=== PATIENT | female | born 1955 | race Caucasian/White ===

== ENCOUNTER → 2023-11-09 17:17 | Outpatient (REF) | payer MEDICARE, SELFPAY | LOC: WDC 17:17 | PROVIDERS: ATTENDING PHYSICIAN Family Medicine | DX: Z12.31 Encounter for screening mammogram for malignant neoplasm of breast (principal) | CPT/HCPCS: 77063; 77067 ==

== ENCOUNTER 2024-01-18 08:27 | Emergency (ER) | payer MEDICARE, SELFPAY ==
[2024-01-18 08:44] VITALS: BP 158/106
[2024-01-18 09:04] LABS: % Basophils 0.7 % (0-2); % Eosinophils 1.9 % (0-6); % Immature Granulocytes 0.2 % (0-0.5); % Lymphocytes 37.2 % (20.5-51.1); % Monocytes 11.8 % (1.7-9.3); % Neutrophils 48.2 % (42.2-75.2); Absolute Eosinophils 0.1 10^3/uL (0-0.7); Absolute Lymphocytes 2.2 10^3/uL (1.2-3.4); Absolute Monocytes 0.7 10^3/uL (0.1-0.6); Absolute Neutrophils 2.8 10^3/uL (1.4-6.5); Hematocrit 38.9 % (37.0-47.0); Hemoglobin 13.3 g/dL (12.0-16.0); Mean Corp Hgb Conc. 34.2 g/dL (33.0-37.0); Mean Corpuscular Hgb 29.1 pg (27.0-31.0); Mean Corpuscular Volume 85.1 fL (81.0-99.0); Mean Platelet Volume 10.8 fL (7.4-10.4); Nucleated Red Blood Cells % 0 %; Platelet Count 163 10^3/uL (130-400); Red Blood Cell Count 4.57 10^6/uL (4.20-5.40); Red Cell Dist. Width 13.6 % (11.5-14.5); White Blood Cell Count 5.8 10^3/uL (4.8-10.8)
[2024-01-18 09:21] LABS: ALT (SGPT) 26 U/L (0-35); AST (SGOT) 29 U/L (14-36); Albumin 4.8 g/dl (3.5-5.0); Alkaline Phosphatase 78 U/L (38-126); Blood Urea Nitrogen 15 mg/dl (7-17); Carbon Dioxide 27 mmol/L (22-30); Chloride 101 mmol/L (98-107); Glucose 117 mg/dl (70-99); Lipase 270 U/L (23-300); Potassium 3.6 mmol/L (3.5-5.1); Sodium 142 mmol/L (135-145); Total Bilirubin 0.8 mg/dl (0.2-1.3); Total Protein 7.6 g/dl (6.3-8.2); eGFR > 60.00
[2024-01-18 10:42] VITALS: BMI 25.6
[2024-01-18] MEDS: PROTONIX IV 40 MG IV (11:39)
[2024-01-18 12:13] VITALS: BP 122/73
--- NOTE | 2024-01-18 14:06 | ED.GENMED ---
History of Present Illness
General
Chief Complaint: Abdominal Symptoms
Source: patient
Exam Limitations: none
Time Seen by Provider: 01/18/24 10:35
Nursing documentation reviewed up to this point in time: agreed with
History of Present Illness
History of Present Illness:
68 Y/O F with h/o endometrial cancer last year s/p hysterectomy
here with abdominal fullness, post prandial discomfort/bloating for th epa 4 days
she says she tried a bland diet but really doesn't have appetite
she has been belchin too if she lays down
no specific abdomianl pain
no fevr, chills, back pain, chest pain shortness of breath, urnaryproblems, black stool, contstipation, diarrhea
Past History
Past History
ED Past Medical History: Cancer (endometrial)
ED Past Surgical History: Appendectomy and Gynecological
Review of Systems
Review of Systems
Allergies reviewed?: Yes
All Other Systems: Not applicable
Phy Exam
Physical Exam
Physical Exam:
GENERAL: Alert , in no apparent distress
EYE: pupils equal and reactive
NECK: Supple
ENT: o/p clr, mmm.
CARDIAC: Regular rate and rhythm .
LUNGS: Clear breath sounds bilaterally, no acute respiratory distress, no wheezes/rales/rhonchi
ABDOMEN: Soft, without focal tenderness, no r/g, no cvat, normal bowel sounds
NEUROLOGICAL: Alert and oriented, no focal neuro deficits
SKIN: Warm and dry, skin intact.
MUSCULOSKELETAL: No edema, well perfused. neg emely's sign
PSYCH: Normal and appropriate interaction.
Course
Orders/Labs/Results
Orders:
Orders
01/18/24 08:51
Complete Blood Count/With Diff Urgent
Comprehensive Metabolic Panel Urgent
Lipase Urgent
01/18/24 11:36
Electrocardiogram (*1) Urgent
Reason for Study: Abdominal Pain
CT Abd/Pel (IV only)-DH only Urgent
Comment: cannot tolerate oral contrast
Reason For Exam: upper abd fullness, belching, cannot eat
EKG- Treatment ONCE
Pantoprazole [Protonix IV] 40 mg IV NOW STA
01/18/24 15:03
Troponin I Urgent
Abnormal Lab Results
01/18/24
08:51
MPV 10.8 H fL
(7.4-10.4)
Absolute Monos (auto) 0.7 H 10^3/uL
(0.1-0.6)
Monocytes % 11.8 H %
(1.7-9.3)
Glucose 117 H mg/dl
(70-99)
01/18/24 08:51
01/18/24 08:51
Vital Signs
Initial and Last Documented VS:
Initial Vital Signs
Temp Pulse Resp BP Pulse Ox
97.7 F 62 18 158/106 98
01/18/24 08:44 01/18/24 08:44 01/18/24 08:44 01/18/24 08:44 01/18/24 08:44
Last Documented Vital Signs
Temp Pulse Resp BP Pulse Ox
97.7 F 76 18 127/89 100
01/18/24 08:44 01/18/24 16:04 01/18/24 16:04 01/18/24 16:04 01/18/24 16:04
MDM/Problems Addressed
Differential Diagnosis Includes:
gsatrtis, gastroparesis, pancreatitis, PUD, gerd, bowel obstruction
MDM/Problems Addressed:
68 y/o F wellappearing f
h/o endometrial ancer in thep at
here with epigastric fullness, bloating, belching x 4 days
no fvomiting
no fever
no specific pain
lack of appetite
normal exam
well appearing
protonix ordered for possible GERD symptoms/gastritis
labs reassuring
ekg sublte st flattening laterally
ct is reassuring as well
no findings to epxlain pain
pt will f/u with GI
bland diet
protonix daily x 1-2 weeks
return precautions
will likely need endosocopy
*Critical Care Note
Total Time (30-74mins, 75-104mins- exclusive of procedures): Not Applicable
ED Attending Note
-
Portions of this chart may have been created with voice recognition software.� Occasional wrong word or��sound alike� substitutions may have occurred due to the inherent limitations of voice recognition software.
Discharge Plan
Departure
Patient Disposition: Home (Routine Discharge)
Date of Disposition: 01/18/24
Time of Disposition: 15:44
Patient with high blood pressure during this ER visit?: No
Condition: Fair
Discharge Problem:
Abdominal fullness
Instructions: [place] Diet, Abdominal Pain
Prescriptions:
New
pantoprazole [Protonix] 20 mg tablet,delayed release (DR/EC)
20 mg PO DAILY Qty: 14 0RF
No Action
metoprolol tartrate 100 mg tablet
100 mg PO BID
levothyroxine 88 mcg tablet
88 mcg PO DAILY AT 0700
pravastatin 10 mg tablet
10 mg PO QPM
hydrochlorothiazide 25 mg tablet
25 mg PO DAILY
magnesium 500 mg Tablet
500 mg PO DAILY
multivitamin Capsule
1 cap PO DAILY
vitamin B complex [B Complex] Capsule
1 cap PO DAILY
[place] 3 Capsule
720 mg PO DAILY
selenium 200 mcg Capsule
200 mcg PO DAILY
Calcium 600 + D(3)
1 tab PO DAILY
Paxlovid 300 mg (150 mg x 2)-100 mg tablets,dose pack
See Rx Instructions .ROUTE .COMPLEX Qty: 30 0RF
Rx Instructions:
take TWO 150 mg tablets of nirmatrelvir with ONE 100 mg tablet of ritonavir twice daily for 5 days
ascorbic acid (vitamin C) [Vitamin C] 1,000 mg Tablet
1,000 mg PO BID Qty: 56 0RF
Rx Instructions:
Take 1,000 mg twice a day for 14 days
famotidine [Pepcid] 20 mg Tablet
20 mg PO BID Qty: 28 0RF
Rx Instructions:
Take 20 mg twice a day for 14 days
aspirin [Aspirin Childrens] 81 mg Tablet,Chewable
81 mg PO DAILY Qty: 14 0RF
Rx Instructions:
Take 81 mg daily for 14 days
zinc sulfate 50 mg zinc (220 mg) Capsule
50 mg PO DAILY Qty: 14 0RF
Rx Instructions:
Take 220 mg daily for 14 days
cholecalciferol (vitamin D3) [Vitamin D3] 25 mcg (1,000 unit) Tablet
50 mcg PO DAILY Qty: 28 0RF
Rx Instructions:
Take 2,000 units daily for 14 days
melatonin 5 mg Tablet
5 mg PO HS Qty: 14 0RF
Rx Instructions:
Take 5 mg daily at bedtime for 14 days
ibuprofen 600 mg tablet
600 mg PO Q8H PRN (Reason: fever) Qty: 30 0RF
promethazine 25 mg tablet
25 mg PO Q6H PRN (Reason: headache) Qty: 10 0RF
Referrals:
Speedy Bartlett DO [Family Provider] -
Magdalena Jc DO [Active] - Follow up in 5-7 days
Activity Restrictions/Additional Instructions:
WE ARE NOT SURE THE CAUSE OF YOUR BELCHING AND FULLNESS
YOU MAY NEED A GASTRIC EMPTYING STUDY
YOU ALSO MAY NEED AN ENDOSCOPY
FOR THE MENATIME, USE BLAND DIET FOR NOW
TAKE PROTONIX 20 MG IN THE MORNING BEFORE EATING AND WAIT 45 MINUTES BEFORE EATING BREAKFAST
RETURN FOR: SEVERE PAIN, BLACK STOOL, FEVER, VOMITING, OR ANY CONCERNS.
Interventions
Interventions:
*Risk Screen - Suicide Last Done: 01/18/24 08:46
*General Assessment Last Done: 01/18/24 10:42
*Neglect/Abuse Screening Last Done: 01/18/24 10:42
*ED COVID-19 Vaccine History Last Done: 01/18/24 10:42
*Nursing Disposition Last Done: 01/18/24 16:04
HW-Neokdr-Mlspdepomy Assessment Last Done: 01/18/24 10:42
Discharge Date and Time
Discharge Date/Time: 01/18/24 16:05
Print Language: CUBAN
[2024-01-18 15:35] LABS: Troponin I < 0.012 ng/ml
[2024-01-18 16:02] VITALS: BP 127/89
[2024-01-18 16:04] VITALS: BP 127/89
== END 2024-01-18 16:05 | disposition home or self-care (01) ==
LOC: EMR 08:27
PROVIDERS: Physician Assistant; EMERGENCY PHYSICIAN Emergency Medicine; FAMILY PHYSICIAN Family Medicine
DX: R10.9 Unspecified abdominal pain (principal); R14.0 Abdominal distension (gaseous); E78.5 Hyperlipidemia, unspecified; I10 Essential (primary) hypertension; E03.9 Hypothyroidism, unspecified; Z85.42 Personal history of malignant neoplasm of other parts of uterus; Z87.891 Personal history of nicotine dependence
CPT/HCPCS: 99285; 96374; 74177; 80053; 83690; 84484; 85025; 93005; Q9967

== ENCOUNTER → 2024-11-16 15:33 | Outpatient (REF) | payer MEDICARE, SELFPAY | LOC: WDC 15:33 | PROVIDERS: ATTENDING PHYSICIAN Family Medicine | DX: Z12.31 Encounter for screening mammogram for malignant neoplasm of breast (principal) | CPT/HCPCS: 77063; 77067 ==

== ENCOUNTER 2025-01-12 18:02 | Observation (INO) | payer MEDICARE, SELFPAY ==
[2025-01-12] VITALS (10 sets, daily range): BP systolic 125–169; BP diastolic 61–93; PULSE 43–54; BMI 27.0; BMI 26.5
[2025-01-12 12:47] LABS: Hematocrit 36.4 % (37.0-47.0); Hemoglobin 12.3 g/dL (12.0-16.0); Mean Corp Hgb Conc. 33.8 g/dL (33.0-37.0); Mean Corpuscular Volume 84.5 fL (81.0-99.0); Nucleated Red Blood Cells % 0 %; Platelet Count 153 10^3/uL (130-400); Red Cell Dist. Width 13.3 % (11.5-14.5)
[2025-01-12 13:02] LABS: ALT (SGPT) 34 U/L (0-35); AST (SGOT) 28 U/L (14-36); Albumin 4.4 g/dl (3.5-5.0); Alkaline Phosphatase 70 U/L (38-126); Blood Urea Nitrogen 13 mg/dl (7-17); Calcium 9.1 mg/dl (8.4-10.2); Carbon Dioxide 26 mmol/L (22-30); Chloride 105 mmol/L (98-107); Glucose 113 mg/dl (70-99); Potassium 3.5 mmol/L (3.5-5.1); Sodium 139 mmol/L (135-145); Total Protein 7.4 g/dl (6.3-8.2); eGFR > 60.00
[2025-01-12 13:06] LABS: Troponin I < 0.012 ng/ml
--- NOTE | 2025-01-12 14:09 | ED.GENMED ---
History of Present Illness
<Anne Wyatt PA-C - Last Filed: 01/12/25 17:56>
General
Chief Complaint: Dizziness
Source: patient
Exam Limitations: none
Time Seen by Provider: 01/12/25 13:54
History of Present Illness
History of Present Illness:
69yoF with a history of hypertension, hyperlipidemia, and hypothyroidism presenting with her daughter for evaluation of dizziness. She went to bed feeling normal last night. She woke up around 9 AM this morning. She was feeling normal while
laying in the bed but stood up and became dizzy. She describes the dizziness as wooziness and states it feels like her 'head is detached from her body' and 'there are clouds in my head.' She denies any vertiginous symptoms or lightheadedness. She
is unable to ambulate in a straight line due to the dizziness. Symptoms only occur with standing or sitting up. She has a mild tightness sensation in the back of her head but denies any overt headache. No chest pain, shortness of breath, nausea,
vomiting, visual changes, paresthesias, weakness. HR in the 40-50 range during initial exam. She does report being bradycardic at baseline but is unsure if this is worse than usual. She takes metoprolol 100mg BID.
Past History
<Anne Wyatt PA-C - Last Filed: 01/12/25 17:56>
Past History
ED Past Medical History: Cancer (endometrial)
ED Past Surgical History: Appendectomy and Gynecological
Phy Exam
<Anne Wyatt PA-C - Last Filed: 01/12/25 17:56>
General Physical Exam
General Presentation: well appearing and no apparent distress
General Skin: warm and dry
General Habitus: normal
General Mental: alert
ENT Exam
ENT Exam: normocephalic
Eye Exam
Eye Exam: PERRL, EOMI, conjunctiva normal and visual casey normal
Cardiovascular Exam
Cardiovascular Exam: regular rate/rhythm and no murmur
Pulmonary Exam
Pulmonary Exam: lungs clear, no respiratory distress, no rales, no crackles, no rhonchi and no wheezing
Neurological Exam
Neurological Exam: alert, no motor deficits, speech normal and other (+Romberg test. Patient unable to ambulate due to unsteadiness. CN 2-12 intact. Negative drift x4. Normal finger to nose and heel to de la cruz bilaterally. )
NIH Stroke Score
Level of Consciousness: 0 - Alert
LOC questions: 0-Answers both correctly
LOC Commands: 0-Performs both correctly
Best Gaze: 0-Normal
Visual Casey: 0=Normal, no visual loss
Facial palsy: 0=Normal, symmetrical
Motor - Right Arm: 0=No drift 10 seconds
Motor - Left Arm: 0=No drift 10 seconds
Motor - Right Le-No drift 5 seconds
Motor - Left Le-No drift 5 seconds
Limb Ataxia: 0-Absent
Sensation: 0-Normal
Best Language: 0-No aphasia
Dysarthria: 0-Normal
Extinction and Inattention: 0-No abnormality
Total Score:: 0
[place] Coma Scale
Eye Opening: Spontaneous
Verbal Response: Oriented
Motor Response: Obeys Commands
GCS Total Score: 15
Skin Exam
Skin Exam: normal color and warm/dry
Psychiatric Exam
Psychiatric Exam: normal mood/affect
Course
<Anne Wyatt PA-C - Last Filed: 01/12/25 17:56>
Orders/Labs/Results
Orders:
Orders
01/12/25 12:18
Electrocardiogram (*1) Urgent
Reason for Study: Other
Other Reason for Exam: Possible Stroke
CT Head W/o Iv Contrast Urgent
Comment:
Reason For Exam: lack of balance
EKG- Treatment ONCE
01/12/25 12:30
Complete Blood Count/With Diff Urgent
Comprehensive Metabolic Panel Urgent
TSH Urgent
Comment: ADD ON
Troponin I Urgent
01/12/25 14:21
Cardiac Monitoring- Treatment ONCE
Orthostatic VS- Treatment ONCE
0.9% Sodium Chloride 1000 ml [Nss] 1,000 ml IV BOLUS
01/12/25 14:22
Add On- LAB Urgent
Tests Added?: TSH
01/12/25 17:29
Admit/Transfer Patient As Directed
Co-Sign Provider:
Level of Care: Observation services
Assign to:: Telemetry
Physician / Group: gildardo
Diagnosis: dizzy
Reason for Telemetry: Arrhythmia
Date to Stop Telemetry: 01/15/25
Time to Stop Telemetry: 11:00
PRN Pain Medication Management As Directed
May give lesser potent ordered pain med per pt: Yes
preference::
Protocol:: Medication orders for pain may be administered in a
manner that supports deferring to patient preference
when the pt is:
- Requesting an ordered lesser potent pain medication.
Least to most potent pain medications are defined
as: acetaminophen < NSAID < tramadol < opioids
(morphine, oxycodone, hydromorphone).
- Requesting a lesser dose of the same medication IF
ORDERED.
- Requesting a less intrusive route of administration
if both routes are prescribed by the provider (PO <
IV).
01/12/25 17:31
Code Status As Directed
Resuscitation Status: Full Code
01/15/25 11:00
DC Protocol for Telemetry ONCE
Abnormal Lab Results
01/12/25
12:30
WBC 4.5 L 10^3/uL
(4.8-10.8)
Hct 36.4 L %
(37.0-47.0)
MPV 10.9 H fL
(7.4-10.4)
Monocytes % 11.3 H %
(1.7-9.3)
Glucose 113 H mg/dl
(70-99)
01/12/25 12:30
01/12/25 12:30
Vital Signs
Initial and Last Documented VS:
Initial Vital Signs
Temp Pulse Resp BP Pulse Ox
97.6 F 54 18 169/91 99
01/12/25 12:18 01/12/25 12:18 01/12/25 12:18 01/12/25 12:18 01/12/25 12:18
Last Documented Vital Signs
Temp Pulse Resp BP Pulse Ox
97.6 F 47 21 132/93 95
01/12/25 12:18 01/12/25 17:02 01/12/25 17:00 01/12/25 17:00 01/12/25 17:00
<Nitin Arrington, DO - Last Filed: 01/12/25 17:08>
Orders/Labs/Results
Orders:
Orders
01/12/25 12:18
Electrocardiogram (*1) Urgent
Reason for Study: Other
Other Reason for Exam: Possible Stroke
CT Head W/o Iv Contrast Urgent
Comment:
Reason For Exam: lack of balance
EKG- Treatment ONCE
01/12/25 12:30
Complete Blood Count/With Diff Urgent
Comprehensive Metabolic Panel Urgent
TSH Urgent
Comment: ADD ON
Troponin I Urgent
01/12/25 14:21
Cardiac Monitoring- Treatment ONCE
Orthostatic VS- Treatment ONCE
0.9% Sodium Chloride 1000 ml [Nss] 1,000 ml IV BOLUS
01/12/25 14:22
Add On- LAB Urgent
Tests Added?: TSH
01/12/25 17:29
Admit/Transfer Patient As Directed
Co-Sign Provider:
Level of Care: Observation services
Assign to:: Telemetry
Physician / Group: gildardo
Diagnosis: dizzy
Reason for Telemetry: Arrhythmia
Date to Stop Telemetry: 01/15/25
Time to Stop Telemetry: 11:00
PRN Pain Medication Management As Directed
May give lesser potent ordered pain med per pt: Yes
preference::
Protocol:: Medication orders for pain may be administered in a
manner that supports deferring to patient preference
when the pt is:
- Requesting an ordered lesser potent pain medication.
Least to most potent pain medications are defined
as: acetaminophen < NSAID < tramadol < opioids
(morphine, oxycodone, hydromorphone).
- Requesting a lesser dose of the same medication IF
ORDERED.
- Requesting a less intrusive route of administration
if both routes are prescribed by the provider (PO <
IV).
01/12/25 17:31
Code Status As Directed
Resuscitation Status: Full Code
01/15/25 11:00
DC Protocol for Telemetry ONCE
Abnormal Lab Results
01/12/25
12:30
WBC 4.5 L 10^3/uL
(4.8-10.8)
Hct 36.4 L %
(37.0-47.0)
MPV 10.9 H fL
(7.4-10.4)
Monocytes % 11.3 H %
(1.7-9.3)
Glucose 113 H mg/dl
(70-99)
01/12/25 12:30
01/12/25 12:30
Vital Signs
Initial and Last Documented VS:
Initial Vital Signs
Temp Pulse Resp BP Pulse Ox
97.6 F 54 18 169/91 99
01/12/25 12:18 01/12/25 12:18 01/12/25 12:18 01/12/25 12:18 01/12/25 12:18
Last Documented Vital Signs
Temp Pulse Resp BP Pulse Ox
97.6 F 47 21 132/93 95
01/12/25 12:18 01/12/25 17:02 01/12/25 17:00 01/12/25 17:00 01/12/25 17:00
<Anne Wyatt PA-C - Last Filed: 01/12/25 17:56>
MDM/Problems Addressed
Differential Diagnosis Includes:
69yoF here with dizziness that began this morning. Only present with position changes and she is having difficulty ambulating due to her symptoms. Described as off balance, denies vertigo. HR in the 40s on arrival. BP stable. She is well appearing
in no distress. Romberg test is positive and patient unable to ambulate without assistance. No ataxia with finger to nose/heel to de la cruz or nystagmus noted. Differential diagnosis includes: Orthostatic hypotension, CVA, peripheral vertigo
Initial ED plan: Workup initiated in triage. EKG shows sinus bradycardia without heart block. Troponin normal. Will add on TSH, CT head, and check orthostatic vital signs. IV fluid bolus
<Anne Wyatt PA-C - Last Filed: 01/12/25 17:56>
*Pulse Oximetry
SaO2: 99
Oxygen Mode of Delivery: Room air
Patient hypoxic: no (99%)
*EKG
Interpreted by ED Provider?: Yes
EKG Intrepretation Date: 01/12/25
Heart Rate: 51
Rate: bradycardiac
Rhythm: sinus
[place]: normal axis
QRS Pattern: normal QRS
Ischemia: no ischemia
*Critical Care Note
Total Time (30-74mins, 75-104mins- exclusive of procedures): Not Applicable
<Anne Wyatt PA-C - Last Filed: 01/12/25 17:56>
Update Note
Update Note:
CT head negative for acute findings. No orthostatic hypotension present. Due to debilitating symptoms and inability to ambulate, will admit for further evaluation and management.
ED Attending Note
<SEYMOUR Noel-Kathya - Last Filed: 01/12/25 17:56>
-
Portions of this chart may have been created with voice recognition software.� Occasional wrong word or��sound alike� substitutions may have occurred due to the inherent limitations of voice recognition software.
<Nitin Arrington DO - Last Filed: 01/12/25 17:08>
ED Attending Note
Patient seen and examined by attending physician: Yes
I performed the substantive portion of visit, reviewed & personally made and approve the management plan that is documented in note by myself or JORDAN.: Yes
ED Attending Note:
I evaluated the patient at bedside. She has a normal neurologic exam while sitting on the stretcher however describes rather debilitating dizziness when she stands up. She has been bradycardic but no evidence of heart block. TSH normal. Planning
to keep in the hospital for further management and evaluation.
Discharge Plan
Departure
Patient Disposition: Admit
Date of Disposition: 01/12/25
Time of Disposition: 17:06
Presentation/result/management discussed w/ accepting MD/DO: Hospitalist
Discharge Problem:
Dizziness, Sinus bradycardia
Prescriptions:
No Action
metoprolol tartrate 100 mg tablet
100 mg PO BID
levothyroxine 88 mcg tablet
88 mcg PO DAILY AT 0700
pravastatin 10 mg tablet
10 mg PO QPM
hydrochlorothiazide 25 mg tablet
25 mg PO DAILY
calcium carbonate [Calcium 500] 500 mg calcium (1,250 mg) Tablet
500 mg PO DAILY
vitamin B complex [B Complex] Capsule
1 cap PO DAILY
selenium 200 mcg Capsule
100 mcg PO DAILY
omega 4-wgb-cxn-fish oil [Fish Oil] 1,000 (120-180) mg Capsule
1 cap PO DAILY
magnesium oxide 200 mg magnesium Tablet
200 mg PO DAILY
Theragen Tablet
1 tab PO DAILY
Referrals:
Speedy Bartlett DO [Family Provider, Family Practice]
Interventions
Interventions:
*Risk Screen - Suicide Last Done: 01/12/25 12:18
*General Assessment Last Done: 01/12/25 15:04
*Neglect/Abuse Screening Last Done: 01/12/25 15:10
*ED- Fall Risk Assessment Last Done: 01/12/25 15:04
*ED COVID-19 Vaccine History Last Done: 01/12/25 15:04
Discharge Date and Time
Print Language: SINHALA
[2025-01-12] MEDS: NSS 1000 IV (15:10)
[2025-01-12 16:53] LABS: TSH 0.57 uIU/ml (0.47-4.68)
--- NOTE | 2025-01-12 17:14 | HPS.HSE ---
Family Physician
-
Family Physician: Speedy Bartlett
Chief Complaint
-
dizzy
History of Present Illness
69yoF with a history of hypertension, hyperlipidemia, and hypothyroidism presenting with her daughter for evaluation of dizziness. She went to bed feeling normal last night. She woke up around 9 AM this morning. She was feeling normal while
laying in the bed but stood up and became lightheaded and off balance. denied spinning of the room. denied ANTUNEZ. she can't walk straight.denied syncope. denied fever, chills, cough, congestion. denied chest pain, sob. denied abdominal pain,n,v,d.
denied dysuria or hematuria.
head CT and orthostatic negative. admitting for further management.
Medical History
Past Medical History
Past Medical History: Reports Other
Additional Past Medical History:
Hypothyroidism, hypertension, endometrial carcinoma, hyperlipidemia, uterine cancer,
Past Surgical History: Reports Other
Additional Past Surgical History:
Appendectomy, tubal ligation,, FLAKITO with bilateral oophorectomy
Social History
Tobacco: Non-smoker
Alcohol: None
Drug: None
Living: Alone
Family History
Family History: Not pertinent
Allergies / Home Medications
Allergies reflects when Allergies were last updated in [facility].
Home Medications with original date entered in [facility]
Allergy/Medication List:
Allergies
Allergy/AdvReac Type Severity Reaction Status Date / Time
No Known Allergies Allergy Verified 01/12/25 12:17
Home Medications
hydrochlorothiazide 25 mg tablet 25 mg PO DAILY Blood pressure 04/13/22
levothyroxine 88 mcg tablet 88 mcg PO DAILY AT 0700 Thyroid 04/13/22
metoprolol tartrate 100 mg tablet 100 mg PO BID Blood pressure 04/13/22
pravastatin 10 mg tablet 10 mg PO QPM High cholesterol 04/13/22
calcium carbonate 500 mg PO DAILY 10/01/22
selenium 200 mcg capsule 100 mcg PO DAILY 10/01/22
vitamin B complex 1 cap PO DAILY 10/01/22
magnesium oxide 200 mg PO DAILY 01/12/25
omega 1-dbt-men-fish oil 1,000 mg (120 mg-180 mg) capsule (Fish Oil) 1 cap PO DAILY 01/12/25
therapeutic multivitamin 1 tab PO DAILY 01/12/25
Review of Systems
-
Constitutional: Reports No Symptoms
EENT: Reports No Symptoms
Respiratory: Reports No Symptoms
Cardiac: Reports No Symptoms
Abdomen/GI: Reports No Symptoms
: Reports No Symptoms
Musculoskeletal: Reports No Symptoms
Skin: Reports No Symptoms
Neurological: Reports Dizzy and Other (off balance)
Endocrine: Reports No Symptoms
Hematologic/Lymphatic: Reports No Symptoms
Psych: Reports No Symptoms
Physical Exam
Vital Signs
Vital Signs
Temp Pulse Resp BP Pulse Ox
97.6 F 47 21 132/93 95
01/12/25 12:18 01/12/25 17:02 01/12/25 17:00 01/12/25 17:00 01/12/25 17:00
Physical Exam
General: Well Developed, Well Nourished and No Apparent Distress
HEENT: NormoCephalic, Moist mucous membranes and Atraumatic
Respiratory: Clear
Cardiac: S1/S2 and Regular Rhythm; No Murmur or Rub
GI: Soft, Non Tender, Non Distended and Normal Bowel Sounds; No Organomegaly
Rectal: Deferred by Provider
Musculoskeletal: No Clubbing, No Cyanosis and No Edema
Skin: No Rash
Neuro: AO x 3 and Nonfocal/grossly intact
Psych: Calm
Laboratory Results
-
01/12/25 12:30
01/12/25 12:30
Laboratory Results
Total Bilirubin 0.7 mg/dl (0.2-1.3) 01/12/25 12:30
AST 28 U/L (14-36) 01/12/25 12:30
ALT 34 U/L (0-35) 01/12/25 12:30
Alkaline Phosphatase 70 U/L (38-126) 01/12/25 12:30
Troponin I < 0.012 ng/ml 01/12/25 12:30
Data Reviewed
-
CT Scan: Report Reviewed by me
Lab Data: Labs Reviewed by me
Impression/Plan
-
# Dizziness/off balance unclear cause
- Orthostatic BP normal
- CT head negative
-obtain MRI
-neurology consulted
# Bradycardia
- EKG with sinus bradycardia
-HR in 45-50
-hold metoprolol due to low HR
#Essential Hypertension
-Continue hctz
#Hyperlipidemia
-Continue pravastatin
#Hypothyroidism
-Continue Synthroid
DVT proph: Lovenox
Code Status: Full Code
--- NOTE | 2025-01-12 17:34 | W.PN.UPDATE ---
Update Note
Progress Note Update
This note serves as an addendum to the H&P by DAVID Baron, on January 12, 2025.
History of Presenting Illness
69 y/o female with past medical history of hypertension, hyperlipidemia, and hypothyroidism presented with off balance when ambulating, starting for the first time on the morning of 01/12/25. She was feeling normal while laying in the bed but stood
up and became off balance. She denied feeling lightheadedness and she also denied any spinning sensation. She denied having any other symptoms.
Vital Signs
Afebrile
Bradycardic
Blood pressure stable
RR okay
Oxygen saturation good on room air
Physical Exam
General: Not in acute distress
HEENT: Normocephalic, Moist mucous membranes
Respiratory: Clear to Auscultation Bilaterally
Cardiac: S1/S2 and Regular Rhythm
GI: Soft, Non Tender, Non Distended and Normal Bowel Sounds
Musculoskeletal: No Cyanosis and No Edema
Skin: Warm. Dry.
Neuro: AAO x 3 and Nonfocal/grossly intact
Psych: Calm
Assessment/Plan
#Ataxia -- new-onset life skills worker on 01/12/25
- She denied having any lightheadedness, room-spinning sensation, syncope
- Orthostatic vital signs
- CT head unremarkable
- MRI ordered
- Neurology consulted
#Sinus Bradycardia
- Patient said that her slow heart rate is chronic, but this is the first time she is having ataxia
- Patient said she has been taking Metoprolol Tartrate for many years for high blood pressure (no history of CHF, AFib, aneurysm etc)
- Hold beta haroon
- Continue to monitor on telemetry
#Essential Hypertension
- Continue Hydrochlorothiazide
- Hold home Lopressor given significant bradycardia
#Hyperlipidemia
-Continue Pravastatin
#Hypothyroidism
-Continue Synthroid
DVT Prophylaxis: Lovenox
Code Status: Full Code
[2025-01-12] MEDS: LOVENOX 40 MG SC (20:54)
[2025-01-12] MEDS: PRAVACHOL 10 MG PO (20:54)
[2025-01-13 03:00] VITALS: BP 138/71
[2025-01-13] MEDS: SYNTHROID 88 MCG PO (05:43)
--- NOTE | 2025-01-13 07:22 | PTCARENOTE ---
Patient arrived on unit @1947 from ED via stretcher. Patient ambulate to bed with assist x2, c/o dizziness. Patient c/o dizziness only on admission, has denied any dizziness after being admitted. NIHSS initiated score 0, denies any pain or
discomfort. Patient AAOx3, call yadav in reach.
--- NOTE | 2025-01-13 07:26 | CON.NEURO ---
Consultation
Order
Date of Consultation: 01/13/25
Requesting Provider: Sherine Ley CRNP
Reason for Consult: Dizziness
Neurology Consultation Note.
HPI: This is a 69-year-old RH woman who presented to [facility] on 01/12/2025 with imbalance.
According to the patient around 9:00 AM on the day of admission, she experienced severe disequilibrium upon standing up from bed. She states that she couldn't walk straight and kept veering sideways to the right. She describes feeling like her head
'wasn't part of me.'
The patient initially thought it might be due to standing up too quickly, so she sat back down, waited a few minutes, and tried again. However, the symptoms persisted. The disequilibrium continued every time she attempted to stand up. By 11:00 AM,
recognizing that something was wrong, she called her daughter to take her to the emergency room.
Ms. Anton denies any lightheadedness, palpitations, chest pain, motor, visual or sensory symptoms. She reports no associated nausea, tinnitus, ear fullness or recent infections. The patient mentions having chronic nasal congestion since
childhood, for which she uses [id number] decongestants.
At the time of the interview, Ms. Haile reports improvement in her symptoms. She states that she was able to walk to the bathroom earlier without issues and is no longer feeling imbalanced.
ER VS: 169/91, 54�46, afebrile.
EKG: Sinus bradycardia, QT Int : 488 ms
PDMP:none
Labs: Glucose�113, normal sodium, hemoglobin, creatinine, troponin, TSH
CT head wo contrast�no acute abnormalities.
PMH: Endometrial carcinoma (status post RT), HTN, DLP, hypothyroidism
PSH: FLAKITO with bilateral oophorectomy, tubal ligation, appendectomy, Robotic uterosacral ligament suspension, anterior/posterior colporrhaphy, cystoscopy; L wrist ORIF
SH:Lives with daughter, son-in-law, and 3 grandchildren; retired pharmacy technician per diem, non-smoker, no history of excessive alcohol use
FH: Parents�diabetes
All:
ROS: General: Negative for fever, chills, fatigue, muscle aches, appetite or weight change.
HEENT: Positive for chronic nasal congestion. Negative for double vision, ear pain, tinnitus.
Cardiovascular: Negative for palpitations.
Neurological: Positive for dizziness and imbalance when standing. Negative for numbness, vision changes, nausea.
Musculoskeletal: Negative for neck pain, back pain.
General: Well developed. In no acute distress.
Cardio: Regular rate and rhythm without murmur. Extremities are without cyanosis or edema.
Neuro:
Mental Status: Alert, oriented to person, place, and date. Normal attention and recall. Good fund of knowledge. Follows complex requests across the midline. Comprehension, naming, and repetition intact.
Cranial Nerves: Pupils are equally round and reactive to light. EOMs full. Visual franco full to confrontation. No ptosis. No nystagmus. V1-V3 intact to light touch and pinprick bilaterally, symmetric. Face symmetric. Impaired hearing AU.
The palate elevated well. SCMs and traps 5/5. Tongue midline. No dysarthria.
Motor: Normal bulk and tone. No pronator or arm drift. Strength 5/5 throughout. No clonus.
Reflexes: 2+ throughout the upper extremities and 3+ patellar's. Plantar responses flexor bilaterally.
Sensory: Normal vibration at the toes
Coordination: No dysmetria or tremor.
Gait: deferred
Assessment and Plan:
I. Probably peripheral vertigo.
II. Sinus bradycardia
III. History of uterine carcinoma
IV. BL SNHL
- Fall precaution
-Please obtain orthostatic vital sign
-Cardiology consult
-Brain MRI without jennie in view of history of malignancy
-ENT consult (can be done as outpatient)
-PT
- Will follow
I personally reviewed all radiology and labs along with past medical records pertinent to current medical problems. Total time spent in patient care is 56 minutes.
Thank you for allowing us to participate in the care of this patient. We will continue to follow. Please do not hesitate to contact us with any questions or concerns.
Subjective/Objective
Subjective Data
Date of Service: January 13, 2025
Objective Data
Vital Signs
Temp Pulse Resp BP Pulse Ox
36.6 C 48 16 138/71 94
01/13/25 03:00 01/13/25 03:00 01/13/25 03:00 01/13/25 03:00 01/13/25 03:00
Lab Results
01/12/25 12:30
01/12/25 12:30
Sodium 139 mmol/L (135-145) 01/12/25 12:30
Potassium 3.5 mmol/L (3.5-5.1) 01/12/25 12:30
BUN 13 mg/dl (7-17) 01/12/25 12:30
Glucose 113 mg/dl (70-99) H 01/12/25 12:30
Calcium 9.1 mg/dl (8.4-10.2) 01/12/25 12:30
Patient Allergies
No Known Allergies Allergy (Verified 01/12/25 12:17)
Medications
-
Active Medications
Generic Name Dose Route Start Last Admin
Trade Name Freq PRN Reason Stop Dose Admin
Acetaminophen 650 mg 01/12/25 19:49
Acetaminophen 325 Mg Tablet PO 02/09/25 19:48
Q4HPRN PRN
mild pain/ANTUNEZ/temp> 100.4F
Bisacodyl 10 mg 01/12/25 19:49
Bisacodyl 10 Mg Rectal Suppository RECTAL 02/09/25 19:48
[id number] PRN
constipation
Enoxaparin Sodium 40 mg 01/12/25 19:49 01/12/25 20:54
Enoxaparin Sodium 40 Mg/0.4 Ml Syringe SC 02/09/25 19:48 40 mg
QPM DANIEL Administration
Hydrochlorothiazide 25 mg 01/13/25 08:00
Hydrochlorothiazide 25 Mg Tablet PO 02/10/25 07:59
DAILY DANIEL
Levothyroxine Sodium 88 mcg 01/13/25 06:00 01/13/25 05:43
Levothyroxine 88 Mcg Tablet PO 02/10/25 05:59 88 mcg
DAILY@0600 DANIEL Administration
Magnesium Oxide 200 mg 01/13/25 08:00
Magnesium Oxide 400 Mg Tablet PO 02/10/25 07:59
DAILY DANIEL
Pt's Own (Selenium 100 mcg 01/13/25 08:00
100 Mcg Capsule) Po PO 02/10/25 07:59
Daily DAILY DANIEL
Polyethylene Glycol 17 grams 01/12/25 19:49
Polyethylene Glycol Powder 17 Grams Packet PO 02/09/25 19:48
DAILYPRN PRN
constipation
Pravastatin Sodium 10 mg 01/12/25 19:49 01/12/25 20:54
Pravastatin 10 Mg Tablet PO 02/09/25 19:48 10 mg
QPM DANIEL Administration
Senna/Docusate Sodium 1 tablet 01/12/25 19:49
Docusate W/Senna (Rubia-Colace) Tablet PO 02/09/25 19:48
BIDPRN PRN
constipation
Sodium Chloride 0 flush 01/12/25 20:00
Sodium Chloride 0.9% (Flush) Syringe IV 02/09/25 19:59
PER PROTOCOL DANIEL
Home Medications
�Medication �Instructions �Recorded
hydrochlorothiazide 25 mg tablet 25 mg PO DAILY Blood pressure 04/13/22
levothyroxine 88 mcg tablet 88 mcg PO DAILY AT 0700 Thyroid 04/13/22
metoprolol tartrate 100 mg tablet 100 mg PO BID Blood pressure 04/13/22
pravastatin 10 mg tablet 10 mg PO QPM High cholesterol 04/13/22
calcium carbonate 500 mg PO DAILY 10/01/22
selenium 200 mcg capsule 100 mcg PO DAILY 10/01/22
vitamin B complex 1 cap PO DAILY 10/01/22
magnesium oxide 200 mg PO DAILY 01/12/25
omega 2-cwz-woy-fish oil 1,000 mg 1 cap PO DAILY 01/12/25
(120 mg-180 mg) capsule (Fish Oil)
therapeutic multivitamin 1 tab PO DAILY 01/12/25
Vital Signs and Labs
-
Vital Signs and Labs:
Vital Signs
Temp Pulse Resp BP Pulse Ox
36.6 C 58 17 137/77 97
01/13/25 07:28 01/13/25 07:28 01/13/25 07:28 01/13/25 07:28 01/13/25 07:28
Lab Results
01/12/25 12:30
01/12/25 12:30
Sodium 139 mmol/L (135-145) 01/12/25 12:30
Potassium 3.5 mmol/L (3.5-5.1) 01/12/25 12:30
BUN 13 mg/dl (7-17) 01/12/25 12:30
Glucose 113 mg/dl (70-99) H 01/12/25 12:30
Calcium 9.1 mg/dl (8.4-10.2) 01/12/25 12:30
Medications
-
Medications:
Generic Name Dose Route Start Last Admin
Trade Name Freq PRN Reason Stop Dose Admin
Acetaminophen 650 mg 01/12/25 19:49
Acetaminophen 325 Mg Tablet PO 02/09/25 19:48
Q4HPRN PRN
mild pain/ANTUNEZ/temp> 100.4F
Bisacodyl 10 mg 01/12/25 19:49
Bisacodyl 10 Mg Rectal Suppository RECTAL 02/09/25 19:48
[id number] PRN
constipation
Enoxaparin Sodium 40 mg 01/12/25 19:49 01/12/25 20:54
Enoxaparin Sodium 40 Mg/0.4 Ml Syringe SC 02/09/25 19:48 40 mg
QPM DANIEL Administration
Hydrochlorothiazide 25 mg 01/13/25 08:00
Hydrochlorothiazide 25 Mg Tablet PO 02/10/25 07:59
DAILY DANIEL
Levothyroxine Sodium 88 mcg 01/13/25 06:00 01/13/25 05:43
Levothyroxine 88 Mcg Tablet PO 02/10/25 05:59 88 mcg
DAILY@0600 DANIEL Administration
Magnesium Oxide 200 mg 01/13/25 08:00
Magnesium Oxide 400 Mg Tablet PO 02/10/25 07:59
DAILY DANIEL
Pt's Own (Selenium 100 mcg 01/13/25 08:00
100 Mcg Capsule) Po PO 02/10/25 07:59
Daily DAILY DANIEL
Polyethylene Glycol 17 grams 01/12/25 19:49
Polyethylene Glycol Powder 17 Grams Packet PO 02/09/25 19:48
DAILYPRN PRN
constipation
Pravastatin Sodium 10 mg 01/12/25 19:49 01/12/25 20:54
Pravastatin 10 Mg Tablet PO 02/09/25 19:48 10 mg
QPM DANIEL Administration
Senna/Docusate Sodium 1 tablet 01/12/25 19:49
Docusate W/Senna (Rubia-Colace) Tablet PO 02/09/25 19:48
BIDPRN PRN
constipation
Sodium Chloride 0 flush 01/12/25 20:00
Sodium Chloride 0.9% (Flush) Syringe IV 02/09/25 19:59
PER PROTOCOL DANIEL
Home Medications
-
Home Medications
hydrochlorothiazide 25 mg tablet 25 mg PO DAILY Blood pressure 04/13/22
levothyroxine 88 mcg tablet 88 mcg PO DAILY AT 0700 Thyroid 04/13/22
metoprolol tartrate 100 mg tablet 100 mg PO BID Blood pressure 04/13/22
pravastatin 10 mg tablet 10 mg PO QPM High cholesterol 04/13/22
calcium carbonate 500 mg PO DAILY 10/01/22
selenium 200 mcg capsule 100 mcg PO DAILY 10/01/22
vitamin B complex 1 cap PO DAILY 10/01/22
magnesium oxide 200 mg PO DAILY 01/12/25
omega 7-rkm-uqf-fish oil 1,000 mg (120 mg-180 mg) capsule (Fish Oil) 1 cap PO DAILY 01/12/25
therapeutic multivitamin 1 tab PO DAILY 01/12/25
[2025-01-13 07:28] VITALS: BP 137/77
--- NOTE | 2025-01-13 07:29 | W.PN.HOSP.TC ---
Today's Communication/Plan
-
Discharge today
Assessment / Plan
Assessment / Plan
Physical Exam
General: Not in acute distress
HEENT: Normocephalic, Moist mucous membranes
Respiratory: Clear to Auscultation Bilaterally
Cardiac: S1/S2 and Regular Rhythm. Bradycardic.
GI: Soft, Non Tender, Non Distended and Normal Bowel Sounds
Musculoskeletal: No Cyanosis and No Edema
Skin: Warm. Dry.
Neuro: AAO x 3 and Nonfocal/grossly intact
Psych: Calm
Assessment/Plan
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
- She denied having any lightheadedness, room-spinning sensation, syncope
- Orthostatic vital signs
- CT head unremarkable
- MRI Brain with a 7 mm round enhancing focus along the anterior aspect of the falx which likely represents a small meningioma and mild atrophy with sequelae of mild chronic small vessel ischemic disease (as per radiologist's
report)
- Vitamin B12 normal at 543
- Neurology consulted: I communicated with on-call neurologist Dr. Samnao who is in agreement that patient can be discharged today
- Outpatient ENT consult (as per neurology)
- I communicated via [place] Text with on-call financial market dealer Dr. Snow, and he agreed with me that patient's ataxia does not sound cardiac-related (patient also remains without SOB, never had any
shortness of breath, denied any chest or abdominal pain or nausea/vomiting whatsoever)
- Practice fall precautions at home
#Sinus Bradycardia
- Patient said that her slow heart rate is chronic, but this is the first time she is having ataxia
- Patient said she has been taking Metoprolol Tartrate for many years for high blood pressure (no history of CHF, AFib, aneurysm etc)
- In order to avoid beta haroon and seeing that patient's heart rate is chronically on 40s to 50s with or without beta haroon, will resume Lopressor 12.5 mg BID especially to avoid beta haroon withdrawal -- I spoke with on-call
financial market dealer Dr. Snow who is in agreement with this
- Continue to monitor on telemetry while in hospital
#Essential Hypertension
- Continue Hydrochlorothiazide
- Resume Lopressor at lower dose
#Hyperlipidemia
-Continue Pravastatin
#Hypothyroidism
-Continue Synthroid
DVT Prophylaxis: Lovenox
Code Status: Full Code
More than 30 minutes spent in discharge including
Final examination of the patient
Summarizing hospital stay
Instructions for continuing care to all relevant caregivers
Preparation of discharge records, prescriptions, and referral forms
Total time spent (in minutes): 38
Anticipated Discharge: Today
Subjective/Interval History
-
Date of Service: January 13, 2025
Patient was seen and examined. She reported that her balance issues with walking resolved. She denied any chest pain, shortness of breath, dizziness, palpitations or any other issues or complaints.
Objective Data
-
Vital Signs:
Vital Signs
Temp Pulse Resp BP Pulse Ox
97.9 F 58 17 137/77 97
01/13/25 07:28 01/13/25 07:28 01/13/25 07:28 01/13/25 07:28 01/13/25 07:28
[2025-01-13] MEDS: MAGNESIUM OXIDE 200 MG PO (07:53)
[2025-01-13] MEDS: ORETIC 25 MG PO (07:56)
[2025-01-13 10:42] LABS: Vitamin B12 543 pg/ml (239-931)
[2025-01-13 11:13] VITALS: BP 130/76
[2025-01-13] MEDS: LOPRESSOR 12.5 MG PO (12:11)
[2025-01-13 13:56] VITALS: BP 147/86
--- NOTE | 2025-01-13 14:29 | CM ---
Addendum entered by Albertina Merino 01/13/25 16:53:
patient discharged today
no needs
PLAN: Home, no needs
daughter to transport
Original Note:
Patient seen at bedside
IA completed
AGUIRRE form explained & signed. Placed in chart
Lives with daughter in an in-law suite, 3 steps to enter, bed/bath on one floor
PLOF: independent, does not use assistive device
DME: Shower chair, walker, wheelchair
Denies vn/rehab
PCP: Dr. Bartlett
Pharmacy: [facility]
PLAN: Home, no needs when stable
daughter to transport
[2025-01-13 15:19] VITALS: BP 110/64
--- NOTE | 2025-01-13 16:40 | W.DCSUMMARY ---
Discharge Summary
Discharge Data
Date of Admission: 01/12/25
Date of Discharge: 01/13/25
Total time spent discharging patient (in min): 38
-
Pending Results: No
Hospital Course
69 y/o female with past medical history of chronic bradycardia (with heart rates in the 40s and 50s), hypertension, hyperlipidemia, uterine cancer and hypothyroidism presented with off balance when ambulating, starting for the first time on the
morning of 01/12/25. She was feeling normal while laying in the bed but stood up and became off balance. She denied feeling lightheadedness and she also denied any spinning-type dizziness sensation. She denied any chest pain, palpitations or any
other symptoms. Neurology was consulted and Brain MRI was ordered. Patient's Metoprolol was initially held in the setting of bradycardia.
Patient stated that her home Metoprolol was prescribed many, many years ago, but just for blood pressure only; patient denied having any history of tachycardia, atrial fibrillation, congestive heart failure, aneurysm etc. Case was also discussed
with on-call industrial chemicals supervisor (not formal consult, as formal consult was determined to be not needed) who was in agreement with reducing patient's Metoprolol dose to 12.5 mg BID with possible consideration for tapering off completely outpatient.
Brain MRI showed no acute findings, but there was a 7 mm round enhancing focus along the anterior aspect of the falx which likely represents a small meningioma and mild atrophy with sequelae of mild chronic small vessel ischemic disease, as per
radiologist's report. Patient's symptoms resolved and she felt fine. Case was discussed with neurology who agreed for patient to be discharged on 01/13/25.
Discharge Plan
-
Patient Disposition: Home (Routine Discharge)
Discharge Diagnosis/Procedures: #Ataxia -- new-onset early childhood aide classroom on 01/12/25 -- RESOLVED
#Sinus Bradycardia -- asymptomatic on home beta haroon
#Essential Hypertension
#Hyperlipidemia
#Hypothyroidism

MRI Brain with and without contrast (as per radiologist's report):
'FINDINGS:
Diffusion imaging shows no hyperacute, acute, or early subacute infarction.
Scattered T2/FLAIR hyperintensities within the subcortical and periventricular white matter of the bilateral cerebral hemispheres which is nonspecific, however likely sequelae of mild small vessel ischemic disease. Mild parenchymal volume loss.
There is no extra-axial fluid collection.
The ventricles are normal in size.
Flow voids of the larger intracranial vessels are present.
Paranasal sinuses and mastoid air cells are predominantly clear.
Marrow signal pattern is within normal limits.
There is a 7 x 4 mm round enhancing focus along the anterior aspect of the falx (series 903 image [id number]). There is no associated mass effect.
IMPRESSION:
No acute intracranial abnormality noted.
There is a 7 mm round enhancing focus along the anterior aspect of the falx which likely represents a small meningioma.
Mild atrophy with sequelae of mild chronic small vessel ischemic disease.'
Condition: Good
Diet: Low Fat and Low Cholesterol
Activity: As tolerated
Instructions: Metoprolol
Referrals:
Anthony Hameed MD [Active, Otology] - in two to three weeks
Referral Note: Concern for peripheral vertigo and sensorineural hearing loss. Was hospitalized in January 2025. Neurology recommended outpatient ENT consult.
Speedy Bartlett DO [Family Provider, Family Practice] - in less than 1 week
Referral Note: Hospitalization Follow-Up
Additional Discharge Medication Instructions: Metoprolol Tartrate reduced to 12.5 mg PO BID given your chronic bradycardia -- the Metoprolol has been continued (at a lower dose) in order to avoid beta haroon withdrawal. You need to discuss your
chronic sinus bradycardia with your primary care provider by 01/15/25 or 01/16/25.
Prescriptions:
New
metoprolol tartrate 25 mg Tablet
12.5 mg PO BID Qty: 30 1RF
Continued
levothyroxine 88 mcg tablet
88 mcg PO DAILY AT 0700
pravastatin 10 mg tablet
10 mg PO QPM
hydrochlorothiazide 25 mg tablet
25 mg PO DAILY
calcium carbonate 500 mg calcium (1,250 mg) Tablet
500 mg PO DAILY
vitamin B complex Capsule
1 cap PO DAILY
selenium 200 mcg Capsule
100 mcg PO DAILY
omega 2-akl-cdl-fish oil [Fish Oil] 1,000 (120-180) mg Capsule
1 cap PO DAILY
magnesium oxide 200 mg magnesium Tablet
200 mg PO DAILY
therapeutic multivitamin Tablet
1 tab PO DAILY
Discontinued
metoprolol tartrate 100 mg tablet
100 mg PO BID
Discharge Orders:
Discharge Patient (As Directed); Ordered 01/13/25
Ordered By: Nathan Bowling
Discharge Date and Time
Discharge Date/Time: 01/13/25 18:00
Print Language: [email or web address]
[2025-01-13] MEDS: PRAVACHOL 10 MG PO (17:00)
[2025-01-13] MEDS: LOVENOX SC (17:00)
== END 2025-01-13 18:00 | disposition home or self-care (01) ==
LOC: 3 WEST ACU 18:02
PROVIDERS: Emergency Medicine; ADMITTING PHYSICIAN Hospitalist; CONSULT PHYSICIAN Psychiatry & Neurology Neurology; EMERGENCY PHYSICIAN Emergency Medicine; FAMILY PHYSICIAN Family Medicine
DX: R27.0 Ataxia, unspecified (principal); E78.5 Hyperlipidemia, unspecified; E03.9 Hypothyroidism, unspecified; I10 Essential (primary) hypertension; R00.1 Bradycardia, unspecified; C83.70 Burkitt lymphoma, unspecified site; Z79.899 Other long term (current) drug therapy; Z79.890 Hormone replacement therapy
CPT/HCPCS: 70030; 70450; 70553; 80053; 82607; 84443; 84484; 85025; 93005; 96360; 97116; 97162; 99285; A9575; G0378